=== PATIENT | female | born 1950 | race Caucasian/White ===

== ENCOUNTER 2018-02-18 12:55 | Outpatient (CLI) | payer MEDICARE ==
--- NOTE | 2018-02-18 14:20 | CT ---
CT OF THE CHEST WITHOUT CONTRAST: Date 02/18/18 COMPARISON: CTA of the chest dated 01/09/17. HISTORY: Thoracic aortic aneurysm. TECHNIQUE: Multiple contiguous axial images were obtained in a CT of the chest without contrast. Coronal reforma ts were performed. FINDINGS: There is enlargement of the ascending aorta. This has enlarged compared to the prior exam and now rick sures approximately 4.3 cm in greatest dimension. The aortic root appears normal in caliber, measurin g only 2.7 cm in size. The aneurysm of the aorta involves the ascending aorta without significant enl argement of the descending aorta or the aortic arch. Atherosclerotic calcifications are seen within the aorta. The great vessels are normal in caliber wit hout evidence of aneurysmal dilatation. The heart is normal in size without focal cardiac abnormality . No hilar or mediastinal lymphadenopathy seen. The visualized subdiaphragmatic structures are unremarkable. Degenerative changes are seen in the spi ne. Abdominal wall soft tissues are unremarkable. IMPRESSION: Ascending thoracic aortic aneurysm appears to have slightly enlarged compared to the prior examinatio n. POS: [facility]
== END 2018-02-18 12:56 | disposition home or self-care (01) ==
LOC: CT 12:55
PROVIDERS: ATTEND Thoracic Surgery (Cardiothoracic Vascular Surgery)
DX: I71.2 Thoracic aortic aneurysm, without rupture (principal)
CPT/HCPCS: 71250

== ENCOUNTER 2018-04-08 07:57 | Outpatient (CLI) | payer MEDICARE ==
--- NOTE | 2018-04-08 11:05 | MMO ---
BILATERAL SCREENING MAMMOGRAM: Date: 04/08/18 HISTORY: Screening. COMPARISON: Mammogram dated 07/09/16. TECHNIQUE: Bilateral screening CC and MLO mammograms. This patient's mammogram was interpreted with the assistance of computer-aided detection. FINDINGS: There are scattered fibroglandular densities. Unchanged left-sided breast mass at 3:00 dating back to 2006, likely benign entity. No suspicious mass, architectural distortion, or microcalcifications. IMPRESSION: BIRADS 2: Benign Finding(s) Continued annual mammographic screening is recommended. POS: [facility]
== END 2018-04-08 07:58 | disposition home or self-care (01) ==
LOC: SCSMAMMO 07:57
PROVIDERS: ATTEND Family Medicine
DX: Z12.31 Encounter for screening mammogram for malignant neoplasm of breast (principal)
CPT/HCPCS: 77067

== ENCOUNTER 2018-05-17 09:01 | Outpatient (CLI) | payer MEDICARE | END 2018-05-17 09:02 | disposition home or self-care (01) | LOC: BICMAMMO 09:01 | PROVIDERS: ATTEND Family Medicine | DX: M85.80 Other specified disorders of bone density and structure, unspecified site (principal); M85.89 Other specified disorders of bone density and structure, multiple sites; Z78.0 Asymptomatic menopausal state | CPT/HCPCS: 77080 ==

== ENCOUNTER 2018-09-16 10:25 | Outpatient (CLI) | payer MEDICARE ==
--- NOTE | 2018-09-16 13:17 | CT ---
CT CHEST WITHOUT CONTRAST: Date: 09/16/18 HISTORY: Thoracic aortic aneurysm without rupture. COMPARISON: 02/18/18. FINDINGS: Ectasia of the ascending thoracic aorta is again seen with stable AP dimension of 4.3 cm. The descend ing thoracic aorta measures 2.5 cm. No pleural or pericardial effusions are seen. No pneumothoraces, lobar consolidation, pulmonary nodul es, or lung masses are identified. Degenerative changes are present in the spine. IMPRESSION: Stable ectasia of the ascending thoracic aorta. POS: [facility]
== END 2018-09-16 10:26 | disposition home or self-care (01) ==
LOC: SCSCT 10:25
PROVIDERS: ATTEND Thoracic Surgery (Cardiothoracic Vascular Surgery)
DX: I71.2 Thoracic aortic aneurysm, without rupture (principal); I77.810 Thoracic aortic ectasia
CPT/HCPCS: 71250

== ENCOUNTER 2019-03-22 08:18 | Outpatient (CLI) | payer MEDICARE ==
[2019-03-22] MEDS ORDERED: ISOVUE-370 76%-LOCM 1 ML ONE (08:35)
--- NOTE | 2019-03-22 09:43 | CT ---
EXAM: CT Chest W Con PROVIDED CLINICAL HISTORY: Thoracic aortic aneurysm without rupture COMPARISON: Noncontrast CT thorax 09/16/2018 and CTA thorax on 01/09/2017 FINDINGS: Again noted is ectasia of the ascending thoracic aorta which measures approximately 4.3 cm AP x 4 cm transverse, and measurements are unchanged when compared to prior studies in 2018. Greatest measurement on study in 2017 was 4.1 cm. There is no evidence of an aortic dissection. Vascular calci fications and atherosclerotic plaque is seen throughout the thoracic aorta as well as involving the visualized proximal abdominal aorta. There is at least mild narrowing involving the origin of the lef t subclavian artery. There is a normal arrangement of the great vessels at the aortic arch. The heart is mildly enlarged. There is no evidence of lymphadenopathy. Minimal atelectasis is present in the dependent portion right mid lung zone. A 4 mm slightly irregular pulmonary nodule is seen in the lateral aspect of the right upper lobe (ever ge 39, series 3). A few tiny sub-3 mm pulmonary nodules are seen in the anterior aspect of the right upper lobe similar to prior study. There is a stable slightly irregular nodular density in the anterior aspect left upper lobe (image 36, series 3) which is stable compared to studies from 2017 and 2018 and could potentially represent an area of mild scarring. An approximately 4 mm noncalcified pulmonary nodule is seen in the left upper lobe (image 41, series 3). This is not well appreciated on prior exams. A 4 mm noncalcified pulmonary nodule is seen in the superior segment of the right low er lobe (image 45, series 3). No pleural effusions. Visualized upper abdomen demonstrates a normal CT appearance. Few diverticula are seen in the proxima l descending colon. IMPRESSION: 1. Stable ectasia of the ascending thoracic aorta when compared to studies in 2018; although, the rick surement is slightly greater when compared to a study in 2017 as described above. 2. Scattered nodular densities within the lungs bilaterally measuring 4 mm or less. Follow-up CT thor ax in 6 months is recommended unless patient has history of neoplastic process. 3. Atherosclerotic plaque in the thoracic aorta. 4. Cardiomegaly.
== END 2019-03-22 08:19 | disposition home or self-care (01) ==
LOC: BICCT 08:18
PROVIDERS: ATTEND Thoracic Surgery (Cardiothoracic Vascular Surgery)
DX: I71.2 Thoracic aortic aneurysm, without rupture (principal); I70.0 Atherosclerosis of aorta; I51.7 Cardiomegaly; J98.4 Other disorders of lung
CPT/HCPCS: 71260; 82565; Q9966

== ENCOUNTER 2019-09-22 08:42 | Outpatient (CLI) | payer MEDICARE ==
--- NOTE | 2019-09-22 11:25 | CT ---
CT chest 09/22/2019 COMPARISON: 03/22/2019 HISTORY: Reevaluate thoracic aortic aneurysm. TECHNIQUE: Axial CT imaging at 5 mm intervals through the chest with IV contrast. Coronal and sagitta l reformatted imaging obtained. FINDINGS: The liver, gallbladder, and spleen appear grossly unremarkable. The pancreas and adrenal glands are stable. There is a small adrenal nodule on the right, difficult t o characterize given its small size of approximately 7 mm, similar when compared to the prior examination. The visualized portions of the abdominal aorta demonstrates severe multifocal calcified and noncalcif ied eccentric plaque. There is mild narrowing at the origin of celiac axis. There is a probable nonflow limiting small dissection of the infrarenal abdominal aorta on axial imag e [id number]. The abdominal aorta is not fully imaged on this examination. There is a mild/moderate degree of narrowing of the abdominal aorta just below the axial level the renal arteries on the basis of atherosclerotic plaque. There is ectasia of the ascending aorta which measures approximately 4.2 x 4.1 cm, stable when compar ed to the 03/22/2019 examination. There is atherosclerotic calcification involving the aortic arch as well as the origin of the left common carotid artery and left subclavian artery. There is no pneumothorax noted. There is a new noncalcified 4 mm nodule in the superior aspect of the left upper lobe on image 8. Sta ble tiny left upper lobe nodule on image 21 measuring 5 mm. New left upper lobe pulmonary nodule on axial image 23 measures 4 mm. There is a new small left lower lobe pulmonary nodule on image 43 measuring approximately 4 mm. There are 2-3 tiny new pulmonary nodules in the superior lateral aspect of the right upper lobe measu ring up to 2-3 mm, best seen on image #12. Scattered additional stable subcentimeter pulmonary nodules noted inferiorly within the anterior aspect of the right upper lobe. Stable 4 mm nodule in ri ght lower lobe on axial image 23. Osseous structures demonstrate no acute findings. IMPRESSION: 1. Stable ectasia of the ascending aorta measuring up to 4.2 cm. 2. Prominent atherosclerotic disease of the abdominal aorta, incompletely imaged. Probable nonflow li miting focal dissection of the infrarenal abdominal aorta as detailed above. 3. Multiple pulmonary nodules as detailed above. Recommend follow-up CT examination of the chest in 6 months. CODE T
== END 2019-09-22 08:43 | disposition home or self-care (01) ==
LOC: SCSCT 08:42
PROVIDERS: ATTEND Thoracic Surgery (Cardiothoracic Vascular Surgery)
DX: I71.2 Thoracic aortic aneurysm, without rupture (principal); R91.8 Other nonspecific abnormal finding of lung field; I70.0 Atherosclerosis of aorta; I77.810 Thoracic aortic ectasia
CPT/HCPCS: 71260; 82565

== ENCOUNTER 2020-04-12 08:19 | Outpatient (CLI) | payer MEDICARE ==
--- NOTE | 2020-04-12 11:29 | CT ---
CT CHEST WITH IV CONTRAST: Date: 04/12/2020 HISTORY: Thoracic aortic aneurysm. COMPARISON: 09/22/2019, 03/22/2019, and 09/16/2018. FINDINGS: The ascending thoracic aorta measures 4.2 cm in AP dimension and is stable. The thoracic aortic lumen is well opacified without aneurysm or dissection. Vascular calcifications are present. No pleural or pericardial effusions are seen. A few scattered tiny lung nodules measuring up to 4.0 mm are stable. No pneumothoraces or focal areas of consolidation are seen. Non flow-limiting plaque in the abdomina l aorta is again seen. There are degenerative changes in the spine. Upper abdominal tomograms demonstrate fatty infiltration of the liver and a stable 7.0 mm right adrenal nodule. A tiny cyst in the left kidney is again seen. IMPRESSION: 1. Stable ectasia of the ascending thoracic aorta measuring 4.2 cm. 2. Stable exam. POS: [facility]
== END 2020-04-12 08:20 | disposition home or self-care (01) ==
LOC: SCSCT 08:19
PROVIDERS: ATTEND Thoracic Surgery (Cardiothoracic Vascular Surgery)
DX: I71.2 Thoracic aortic aneurysm, without rupture (principal); I77.810 Thoracic aortic ectasia
CPT/HCPCS: 71260; 82565

== ENCOUNTER 2021-02-04 09:38 | Emergency (ER) | payer MEDICARE ==
[2021-02-04 11:03] LABS: #Basophils 0.1 thou/uL (0.0-0.2); #Eosinphils 0.5 thou/uL (0.0-0.7); #Lymphocytes 1.9 thou/uL (1.20-3.40); #Monocytes 0.5 thou/uL (0.11-0.59); #Neutrophils 6.3 thou/uL (1.40-6.50); %Basophils 0.8 % (0.0-1.0); %Lymphocytes 20.3 % (21.0-51.0); %Monocytes 5.5 % (0.0-10.0); %Neutrophils 68.5 % (42.0-75.0); Hemoglobin 14.4 g/dL (12.0-16.0); Mean Corpuscular HGB CONC 33.9 g/dL (32.0-36.0); Mean Corpuscular Hemoglobin 32.1 pg (27.0-31.0); Mean Corpuscular Volume 94.6 fL (78.0-98.0); Mean Platelet Volume 8.8 fL (7.4-10.4); Platelet Count 143 thou/uL (130-400); RBC Distribution Width 12.1 % (11.5-14.5); Red Blood Cell (RBC) Count 4.47 mill/uL (4.20-5.40); White Blood Cell (WBC) Count 9.2 thou/uL (4.8-10.8)
[2021-02-04 11:15] LABS: ALT (SGPT) 25 U/L (8-55); AST (SGOT) 20 U/L (5-34); Albumin 4.2 g/dL (3.4-4.8); Alkaline Phosphatase 85 U/L (40-110); Anion Gap 15 mmol/L (10-20); BUN (Urea Nitrogen) 18 mg/dL (9.8-20.1); Bilirubin, Total 0.7 mg/dL (0.2-1.2); CK (CPK) 67 U/L (29-168); Calc. Creatinine Clearance 0 mL/min (70-130); Calcium 9.5 mg/dL (7.8-10.44); Carbon Dioxide 24 mmol/L (23-31); Chloride 106 mmol/L (98-107); Globulin 2.7 g/dL (2.4-3.5); Glucose 130 mg/dL (83-110); Potassium 4.1 mmol/L (3.5-5.1); Protein, Total 6.9 g/dL (5.8-8.1); Sodium 141 mmol/L (136-145)
== END 2021-02-04 12:39 | disposition home or self-care (01) ==
LOC: ERS 09:38
DX: R55 Syncope and collapse (principal)
CPT/HCPCS: 36415; 71045; 80053; 82550; 83605; 85025; 93005

== ENCOUNTER 2021-04-18 11:05 | Outpatient (CLI) | payer MEDICARE | END 2021-04-18 11:06 | disposition home or self-care (01) | LOC: CT 11:05 | PROVIDERS: ATTEND Thoracic Surgery (Cardiothoracic Vascular Surgery) | DX: I71.2 Thoracic aortic aneurysm, without rupture (principal); K76.0 Fatty (change of) liver, not elsewhere classified | CPT/HCPCS: 71260; 82565 ==

== ENCOUNTER 2021-06-21 13:27 | Outpatient (CLI) | payer MEDICARE ==
[2021-06-21 14:32] LABS: Hemoglobin 14.1 g/dL (12.0-15.5); Mean Corpuscular HGB CONC 32.6 g/dL (32.0-36.0); Mean Corpuscular Hemoglobin 30.3 pg (27.0-33.0); Mean Corpuscular Volume 92.9 fl (81.6-98.3); Mean Platelet Volume 11.4 fl (7.4-10.4); Platelet Count 154 10x3/uL (150-450); RBC Distribution Width 12.7 % (11.5-14.5); Red Blood Cell (RBC) Count 4.66 10x6/uL (3.90-5.03); White Blood Cell (WBC) Count 7.8 10x3/uL (3.5-10.5)
[2021-06-21 15:05] LABS: Anion Gap 15 mmol/L (10-20); BUN (Urea Nitrogen) 15 mg/dL (9.8-20.1); Calc. Creatinine Clearance 0 mL/min (70-130); Calcium 10.3 mg/dL (7.8-10.44); Carbon Dioxide 30 mmol/L (23-31); Chloride 107 mmol/L (98-107); Glucose 161 mg/dL (83-110); Potassium 3.9 mmol/L (3.5-5.1); Sodium 148 mmol/L (136-145)
[2021-06-22 16:41] LABS: SARS-CoV-2 PCR by NAA Not Detected (NotDetected)
== END 2021-06-21 13:28 | disposition home or self-care (01) ==
LOC: LABBT 13:27
PROVIDERS: ATTEND Specialist
DX: Z01.812 Encounter for preprocedural laboratory examination (principal); Z20.822 Contact with and (suspected) exposure to COVID-19
CPT/HCPCS: 80048; 85027; U0003; U0005

== ENCOUNTER 2022-12-02 00:14 | Inpatient (IN) | payer MEDICARE ==
[2022-12-02 02:14] VITALS: BMI 27.6
[2022-12-02] MEDS ORDERED: Dextrose 5% in Water 1,000 ML IV PRN (02:50)
[2022-12-02] MEDS ORDERED: Dextrose 50% Abboject 50 ML SYRINGE SLOW IVP PRN (02:50)
[2022-12-02] MEDS ORDERED: HumaLOG 300 UNITS/3 ML VIAL SC PRN ×2 (02:50)
[2022-12-02] MEDS ORDERED: Acetaminophen 325 MG TAB PO PRN (02:50)
[2022-12-02] MEDS ORDERED: Ondansetron ODT 4 MG TAB PO PRN (02:50)
[2022-12-02] MEDS ORDERED: Ondansetron PF 4 MG/2 ML Vial IVP PRN (02:50)
[2022-12-02] MEDS ORDERED: Sodium Chloride 0.9% 1,000 ML IV SCH (03:00)
[2022-12-02] MEDS ORDERED: clonazePAM 0.5 MG TAB PO PRN (03:22)
[2022-12-02] MEDS ORDERED: Betamethasone Val 0.1% Lotion 60 ML BOT TOP PRN (03:34)
[2022-12-02 08:32] LABS: #Basophils 0.1 thou/uL (0.0-0.2); #Eosinphils 0.2 thou/uL (0.0-0.7); #Lymphocytes 1.9 thou/uL (1.20-3.40); #Monocytes 0.5 thou/uL (0.11-0.59); #Neutrophils 2.8 thou/uL (1.40-6.50); %Basophils 1.1 % (0.0-1.0); %Eosinophils 4.5 % (0.0-10.0); %Monocytes 9.3 % (0.0-10.0); Hemoglobin 12.4 g/dL (12.0-16.0); Mean Corpuscular HGB CONC 33.6 g/dL (32.0-36.0); Mean Corpuscular Hemoglobin 30.9 pg (27.0-31.0); Mean Corpuscular Volume 91.9 fl (78.0-98.0); Mean Platelet Volume 8.6 fL (7.4-10.4); Platelet Count 104 10x3/uL (130-400); RBC Distribution Width 11.8 % (11.5-14.5); White Blood Cell (WBC) Count 5.5 10x3/uL (4.8-10.8)
[2022-12-02 08:48] LABS: Anion Gap 13 mmol/L (10-20); BUN (Urea Nitrogen) 17 mg/dL (9.8-20.1); Calc. Creatinine Clearance 73 mL/min (70-130); Calcium 8.9 mg/dL (7.8-10.44); Carbon Dioxide 27 mmol/L (23-31); Chloride 105 mmol/L (98-107); Estimated GFR 72; Glucose 138 mg/dL (83-110); Potassium 3.3 mmol/L (3.5-5.1); Sodium 142 mmol/L (136-145)
[2022-12-02] MEDS ORDERED: VITAMIN K2 100 MCG PO SCH (09:00)
[2022-12-02] MEDS ORDERED: Aspirin 81 mg Enteric Coated Tablet PO SCH (09:00)
[2022-12-02] MEDS: Pregabalin 50 MG CAP PO SCH ×3 (10:02→20:37)
[2022-12-02] MEDS: Furosemide 20 MG TAB PO SCH (10:03)
[2022-12-02] MEDS: Timolol 0.5% Ophth Soln 5 ml Bottle EA EYE SCH ×2 (11:08→20:44)
[2022-12-02] MEDS: Multivit, Therapeutic 1 TAB PO SCH (11:08)
[2022-12-02] MEDS: Zinc Sulfate 220 MG CAP PO SCH (11:09)
[2022-12-02] MEDS ORDERED: HYDROcodone/Acetaminophen 10/325 mg Tablet PO PRN (11:39)
[2022-12-02] MEDS ORDERED: Potassium Chloride 20 MEQ TAB PO SCH (17:00)
[2022-12-02] MEDS ORDERED: Milk Of Magnesia 30 ML UDCUP PO PRN (17:49)
[2022-12-02] MEDS: HYDROcodone/Acetaminophen 10/325 mg Tablet PO SCH (20:36)
[2022-12-02] MEDS: Losartan 25 MG TAB PO SCH (20:38)
[2022-12-02] MEDS: Senokot S 8.6-50 MG TAB PO SCH (20:38)
[2022-12-02] MEDS ORDERED: Atorvastatin Calcium 40 MG TAB PO SCH (21:00)
[2022-12-02] MEDS ORDERED: Latanoprost 0.005% Ophth Soln 2.5 ml Bottle EA EYE SCH (21:00)
[2022-12-03] MEDS ORDERED: HYDROcodone/Acetaminophen 10/325 mg Tablet PO PRN (03:00)
[2022-12-03 04:18] LABS: #Basophils 0.1 thou/uL (0.0-0.2); #Eosinphils 0.3 thou/uL (0.0-0.7); #Lymphocytes 2.2 thou/uL (1.20-3.40); #Monocytes 0.5 thou/uL (0.11-0.59); #Neutrophils 2.2 thou/uL (1.40-6.50); %Basophils 1.1 % (0.0-1.0); %Eosinophils 5.3 % (0.0-10.0); %Lymphocytes 41.6 % (21.0-51.0); %Monocytes 10.2 % (0.0-10.0); %Neutrophils 41.8 % (42.0-75.0); Hemoglobin 12.4 g/dL (12.0-16.0); Mean Corpuscular HGB CONC 34.9 g/dL (32.0-36.0); Mean Corpuscular Hemoglobin 31.8 pg (27.0-31.0); Mean Corpuscular Volume 91.2 fl (78.0-98.0); Mean Platelet Volume 9.4 fL (7.4-10.4); Platelet Count 107 10x3/uL (130-400); RBC Distribution Width 11.7 % (11.5-14.5); Red Blood Cell (RBC) Count 3.89 mill/uL (4.20-5.40); White Blood Cell (WBC) Count 5.3 10x3/uL (4.8-10.8)
[2022-12-03 04:28] LABS: Anion Gap 13 mmol/L (10-20); BUN (Urea Nitrogen) 15 mg/dL (9.8-20.1); Calc. Creatinine Clearance 82 mL/min (70-130); Calcium 8.9 mg/dL (7.8-10.44); Carbon Dioxide 25 mmol/L (23-31); Chloride 107 mmol/L (98-107); Estimated GFR 82; Glucose 121 mg/dL (83-110); Potassium 3.9 mmol/L (3.5-5.1); Sodium 141 mmol/L (136-145)
[2022-12-03] MEDS ORDERED: Calcium Carbonate 600 MG + Vit D TAB PO SCH (09:00)
[2022-12-03] MEDS ORDERED: Saccharomyces boulardii 250 MG CAP PO SCH (09:00)
[2022-12-03] MEDS ORDERED: Clopidogrel Bisulfate 75 MG TAB PO SCH (09:00)
[2022-12-03] MEDS ORDERED: Aspirin 81 mg Enteric Coated Tablet PO SCH (09:00)
[2022-12-03] MEDS ORDERED: Ascorbic Acid 500 mg Chewable Tablet PO SCH (09:00)
[2022-12-03] MEDS: Senokot S 8.6-50 MG TAB PO SCH (09:03)
[2022-12-03] MEDS: Zinc Sulfate 220 MG CAP PO SCH (09:03)
[2022-12-03] MEDS: Multivit, Therapeutic 1 TAB PO SCH (09:03)
[2022-12-03] MEDS: Furosemide 20 MG TAB PO SCH (09:04)
[2022-12-03] MEDS: Pregabalin 50 MG CAP PO SCH ×2 (09:04→15:29)
[2022-12-03] MEDS: Losartan 25 MG TAB PO SCH (09:05)
[2022-12-03] MEDS: HYDROcodone/Acetaminophen 10/325 mg Tablet PO SCH ×2 (09:05→13:10)
[2022-12-03] MEDS: Timolol 0.5% Ophth Soln 5 ml Bottle EA EYE SCH (09:05)
[2022-12-03 12:10] VITALS: BP 173/73
[2022-12-03 14:11] VITALS: TEMP 97.6
[2022-12-05] MEDS ORDERED: FLU VACC QS2022-23(65YR UP)/PF 240 MCG/0.7 ML SYRINGE IM ONE (09:00)
== END 2022-12-03 16:55 | disposition home or self-care (01) | DRG 68 ==
LOC: IMCU/EMU 00:14
PROVIDERS: ADMIT Family Medicine; ATTEND Family Medicine
DX: I65.22 Occlusion and stenosis of left carotid artery (principal); Z66 Do not resuscitate; I65.03 Occlusion and stenosis of bilateral vertebral arteries; I65.8 Occlusion and stenosis of other precerebral arteries; R42 Dizziness and giddiness; E78.5 Hyperlipidemia, unspecified; E11.51 Type 2 diabetes mellitus with diabetic peripheral angiopathy without gangrene; G47.33 Obstructive sleep apnea (adult) (pediatric); G89.29 Other chronic pain; M54.9 Dorsalgia, unspecified; I50.9 Heart failure, unspecified; E78.2 Mixed hyperlipidemia; I11.0 Hypertensive heart disease with heart failure; Z88.1 Allergy status to other antibiotic agents; Z88.8 Allergy status to other drugs, medicaments and biological substances; Z79.899 Other long term (current) drug therapy; Z86.73 Personal history of transient ischemic attack (TIA), and cerebral infarction without residual deficits; Z79.82 Long term (current) use of aspirin; Z98.890 Other specified postprocedural states; Z90.710 Acquired absence of both cervix and uterus; Z96.82 Presence of neurostimulator; Z87.891 Personal history of nicotine dependence; Z95.0 Presence of cardiac pacemaker
CPT/HCPCS: 0042T; 36415; 36416; 70450; 70551; 71045; 80048; 80053; 80061; 81001; 82043; 82306; 83036; 84439; 84443; 84484; 85025; 85610; 85730; 93005; 93306; J1650; J7050; Q9967

== ENCOUNTER 2022-12-23 07:26 | Outpatient (CLI) | payer MEDICARE | END 2022-12-23 07:27 | disposition home or self-care (01) | LOC: MRI 07:26 | PROVIDERS: ATTEND Neurological Surgery | DX: M51.26 Other intervertebral disc displacement, lumbar region (principal); M50.222 Other cervical disc displacement at C5-C6 level; M51.24 Other intervertebral disc displacement, thoracic region; K60.2 Anal fissure, unspecified; M51.27 Other intervertebral disc displacement, lumbosacral region; M25.78 Osteophyte, vertebrae; M51.37 Other intervertebral disc degeneration, lumbosacral region; M48.07 Spinal stenosis, lumbosacral region; M47.816 Spondylosis without myelopathy or radiculopathy, lumbar region | CPT/HCPCS: 72146; 72148 ==

== ENCOUNTER 2023-02-11 10:32 | Outpatient (CLI) | payer MEDICARE | END 2023-02-11 10:33 | disposition home or self-care (01) | LOC: TBSIIMAG 10:32 | PROVIDERS: ATTEND Neurological Surgery | DX: M54.16 Radiculopathy, lumbar region (principal); Z98.890 Other specified postprocedural states | CPT/HCPCS: 72100 ==

== ENCOUNTER 2023-05-11 12:19 | Outpatient (CLI) | payer MEDICARE | END 2023-05-11 12:20 | disposition home or self-care (01) | LOC: RAD 12:19 | PROVIDERS: ATTEND Internal Medicine Critical Care Medicine | DX: R06.00 Dyspnea, unspecified (principal) | CPT/HCPCS: 71046 ==

== ENCOUNTER 2023-05-25 17:30 | Outpatient (CLI) | payer MEDICARE | END 2023-05-25 17:31 | disposition home or self-care (01) | LOC: SLEEPLAB 17:30 | PROVIDERS: ATTEND Internal Medicine Critical Care Medicine | DX: G47.33 Obstructive sleep apnea (adult) (pediatric) (principal); E11.9 Type 2 diabetes mellitus without complications; G45.9 Transient cerebral ischemic attack, unspecified; I10 Essential (primary) hypertension; E78.00 Pure hypercholesterolemia, unspecified; I71.40 Abdominal aortic aneurysm, without rupture, unspecified; M85.80 Other specified disorders of bone density and structure, unspecified site; H40.9 Unspecified glaucoma | CPT/HCPCS: 95800 ==

== ENCOUNTER 2024-01-12 10:29 | Day surgery (SDC) | payer MEDICARE ==
[2024-01-11 11:41] VITALS: BMI 27.3
[2024-01-12] MEDS ORDERED: PHENYLephrine 2.5% Ophth Soln 15 ml Bottle ONE (12:03)
[2024-01-12] MEDS ORDERED: Tropicamide 1% 15 ML BOTTLE OP SCH (12:15)
== END 2024-01-12 13:17 | disposition home or self-care (01) ==
LOC: SDC 10:29
PROVIDERS: ATTEND Ophthalmology
PROC: 085K3ZZ Destruction of Left Lens, Percutaneous Approach (ICD-10-PCS; principal; 2024-01-12)
PROC: 085J3ZZ Destruction of Right Lens, Percutaneous Approach (ICD-10-PCS; 2024-01-12)
PROC: B246ZZZ Ultrasonography of Right and Left Heart (ICD-10-PCS; 2024-01-12)
DX: H26.493 Other secondary cataract, bilateral (principal); I10 Essential (primary) hypertension; G47.33 Obstructive sleep apnea (adult) (pediatric); E11.9 Type 2 diabetes mellitus without complications; I87.2 Venous insufficiency (chronic) (peripheral); I73.9 Peripheral vascular disease, unspecified; I71.20 Thoracic aortic aneurysm, without rupture, unspecified; Z88.1 Allergy status to other antibiotic agents; Z88.8 Allergy status to other drugs, medicaments and biological substances; Z88.6 Allergy status to analgesic agent; Z79.899 Other long term (current) drug therapy; Z98.51 Tubal ligation status; Z98.890 Other specified postprocedural states; Z90.710 Acquired absence of both cervix and uterus; Z98.49 Cataract extraction status, unspecified eye
CPT/HCPCS: 66821; Z7902; Z7982

== ENCOUNTER 2025-06-13 20:36 | Inpatient (IN) | payer MEDICARE ==
[2025-06-13 22:04] LABS: #Basophils 0.06 10x3/uL (0.0-0.2); #Eosinophils 0.19 10x3/uL (0.0-0.7); #Monocytes 0.58 10x3/uL (0.11-0.59); #Neutrophils 3.42 10x3/uL (1.40-6.50); %Basophils 1.0 % (0.0-1.0); %Eosinophils 3.3 % (0.0-10.0); %Lymphocytes 26.4 % (21.0-51.0); %Monocytes 10.0 % (0.0-10.0); %Neutrophils 59.0 % (42.0-75.0); Hematocrit 37.3 % (36.0-47.0); Hemoglobin 12.2 g/dL (12.0-16.0); Mean Corpuscular Hemoglobin 30.6 pg (27.0-31.0); Mean Corpuscular Volume 93.5 fL (78.0-98.0); Platelet Count 123 10x3/uL (130-400); Red Blood Cell (RBC) Count 3.99 mill/uL (4.20-5.40); White Blood Cell (WBC) Count 5.80 10x3/uL (4.8-10.8)
[2025-06-13 22:18] LABS: Platelet Adequacy Comment Platelets Decreased; RBC Morphology Within Normal Limits; Smudge Cells 15.0 %
[2025-06-13 22:24] LABS: ALT (SGPT) 33 U/L (Less than 34); AST (SGOT) 36 U/L (11-34); Albumin 3.8 g/dL (3.1-4.5); Alkaline Phosphatase 107 U/L (40-110); Anion Gap 15 mmol/L (10-20); BUN (Urea Nitrogen) 32 mg/dL (9.8-20.1); Bilirubin, Total 0.4 mg/dL (0.3-1.2); Calc. Creatinine Clearance 0 mL/min (70-130); Calcium 13.4 mg/dL (7.8-10.44); Carbon Dioxide 33 mmol/L (23-31); Chloride 102 mmol/L (98-107); Globulin 3.0 g/dL (2.4-3.5); Glucose 158 mg/dL (83-110); Potassium 4.0 mmol/L (3.5-5.1); Sodium 146 mmol/L (136-145)
[2025-06-14 00:33] LABS: Troponin I Less than 0.010 ng/mL (< 0.028)
[2025-06-14] MEDS ORDERED: Ondansetron PF 4 MG/2 ML Vial IVP PRN (01:11)
[2025-06-14] MEDS ORDERED: Calcium Carbonate 500 MG ChewTAB PO PRN (01:11)
[2025-06-14] MEDS ORDERED: Albuterol 200 PUFF (6.7GM INHALER) INH PRN (01:15)
[2025-06-14 04:40] VITALS: BMI 29.0
[2025-06-14 04:44] LABS: #Basophils 0.06 10x3/uL (0.0-0.2); #Eosinophils 0.22 10x3/uL (0.0-0.7); #Monocytes 0.66 10x3/uL (0.11-0.59); #Neutrophils 3.94 10x3/uL (1.40-6.50); %Basophils 0.9 % (0.0-1.0); %Eosinophils 3.4 % (0.0-10.0); %Lymphocytes 23.8 % (21.0-51.0); %Monocytes 10.2 % (0.0-10.0); %Neutrophils 60.9 % (42.0-75.0); Hematocrit 38.1 % (36.0-47.0); Hemoglobin 12.7 g/dL (12.0-16.0); Mean Corpuscular Hemoglobin 30.8 pg (27.0-31.0); Mean Corpuscular Volume 92.3 fL (78.0-98.0); Platelet Count 108 10x3/uL (130-400); Red Blood Cell (RBC) Count 4.13 mill/uL (4.20-5.40); White Blood Cell (WBC) Count 6.47 10x3/uL (4.8-10.8)
[2025-06-14 04:58] LABS: ALT (SGPT) 30 U/L (Less than 34); AST (SGOT) 28 U/L (11-34); Albumin 3.4 g/dL (3.1-4.5); Alkaline Phosphatase 104 U/L (40-110); Anion Gap 11 mmol/L (10-20); BUN (Urea Nitrogen) 30 mg/dL (9.8-20.1); Bilirubin, Total 0.4 mg/dL (0.3-1.2); Calc. Creatinine Clearance 32 mL/min (70-130); Calcium 12.5 mg/dL (7.8-10.44); Carbon Dioxide 31 mmol/L (23-31); Chloride 104 mmol/L (98-107); Globulin 2.9 g/dL (2.4-3.5); Glucose 101 mg/dL (83-110); Potassium 3.4 mmol/L (3.5-5.1); Sodium 143 mmol/L (136-145)
[2025-06-14] MEDS ORDERED: Mometasone 200 MCG/Formoterol 5 MCG 120 PUFF INHALER INH SCH (06:30)
[2025-06-14 06:34] LABS: Osmolality, Urine 343 mOsm/kg (50-1200)
[2025-06-14 06:55] LABS: Bacteria/HPF None Seen HPF (None Seen); Glucose, Urine (Dipstick) Normal (Negative); Leukocyte 500 Leu/uL (Negative); Protein, Urine (Dipstick) Negative (Neg-Trace); RBC/HPF 0-3 HPF (0-3); Specific Gravity, Urine 1.008 (1.002-1.036); WBC/HPF Greater than 50 HPF (0-3)
[2025-06-14] MEDS: Mometasone 200 MCG/Formoterol 5 MCG 120 PUFF INHALER INH SCH (08:16)
[2025-06-14] MEDS: CO Q-10 CAPSULE 100 MG PO SCH (09:11)
[2025-06-14 14:27] LABS: Reference Lab Name LABCORP
[2025-06-14 14:29] LABS: Reference Lab Name LABCORP
[2025-06-14] MEDS ORDERED: Naloxegol 12.5 MG TAB PO PRN (16:17)
[2025-06-14] MEDS ORDERED: Glucagon 1 MG/ML KIT IM PRN (16:37)
[2025-06-14] MEDS ORDERED: Dextrose 50% Abboject 50 ML SYRINGE SLOW IVP PRN (16:37)
[2025-06-14] MEDS: clonazePAM 0.5 MG TAB PO PRN (21:22)
[2025-06-14] MEDS: Acetaminophen 325 MG TAB PO PRN (21:23)
[2025-06-15 04:46] LABS: #Basophils 0.06 10x3/uL (0.0-0.2); #Eosinophils 0.17 10x3/uL (0.0-0.7); #Monocytes 0.49 10x3/uL (0.11-0.59); #Neutrophils 2.68 10x3/uL (1.40-6.50); %Basophils 1.3 % (0.0-1.0); %Eosinophils 3.6 % (0.0-10.0); %Lymphocytes 27.5 % (21.0-51.0); %Monocytes 10.4 % (0.0-10.0); %Neutrophils 56.8 % (42.0-75.0); Hematocrit 34.6 % (36.0-47.0); Hemoglobin 11.0 g/dL (12.0-16.0); Mean Corpuscular Hemoglobin 29.7 pg (27.0-31.0); Mean Corpuscular Volume 93.5 fL (78.0-98.0); Platelet Count 100 10x3/uL (130-400); Red Blood Cell (RBC) Count 3.70 mill/uL (4.20-5.40); White Blood Cell (WBC) Count 4.72 10x3/uL (4.8-10.8)
[2025-06-15 04:59] LABS: Anion Gap 13 mmol/L (10-20); BUN (Urea Nitrogen) 24 mg/dL (9.8-20.1); Calc. Creatinine Clearance 40 mL/min (70-130); Calcium 10.1 mg/dL (7.8-10.44); Carbon Dioxide 26 mmol/L (23-31); Chloride 109 mmol/L (98-107); Glucose 96 mg/dL (83-110); Potassium 3.3 mmol/L (3.5-5.1); Sodium 145 mmol/L (136-145)
[2025-06-15 16:17] LABS: Bacteria/HPF 2+ HPF (None Seen); CAUTI Indications for Culture Dysuria,urgency,freq; Glucose, Urine (Dipstick) Normal (Negative); Leukocyte 500 Leu/uL (Negative); Protein, Urine (Dipstick) Negative (Neg-Trace); Specific Gravity, Urine 1.008 (1.002-1.036); WBC/HPF Greater than 50 HPF (0-3)
[2025-06-15 16:18] LABS: Urine Culture Reflex Yes Yes
[2025-06-15] MEDS: hydrALAZINE 20 MG/ML VIAL SLOW IVP PRN (17:04)
[2025-06-16 04:38] LABS: Hematocrit 32.2 % (36.0-47.0); Hemoglobin 10.6 g/dL (12.0-16.0); Mean Corpuscular Hemoglobin 29.9 pg (27.0-31.0); Mean Corpuscular Volume 91.0 fL (78.0-98.0); Platelet Count 103 10x3/uL (130-400); Red Blood Cell (RBC) Count 3.54 mill/uL (4.20-5.40); White Blood Cell (WBC) Count 5.45 10x3/uL (4.8-10.8)
[2025-06-16 05:02] LABS: Anion Gap 10 mmol/L (10-20); BUN (Urea Nitrogen) 21 mg/dL (9.8-20.1); Calc. Creatinine Clearance 50 mL/min (70-130); Calcium 9.4 mg/dL (7.8-10.44); Carbon Dioxide 23 mmol/L (23-31); Chloride 114 mmol/L (98-107); Glucose 104 mg/dL (83-110); Potassium 3.2 mmol/L (3.5-5.1); Sodium 144 mmol/L (136-145)
[2025-06-16] MEDS ORDERED: Non-Formulary Item 1 EACH (Oxycodone Hcl/Acetaminophen [Oxycodone-Acetaminophen 10-325] 1 PO PRN (08:33)
[2025-06-16] MEDS: oxyCODONE/Acetaminophen 5 mg/325 mg Tablet PO PRN (09:27)
[2025-06-16] MEDS: Metoprolol Succinate XL 25 MG ER.TAB PO SCH (09:28)
[2025-06-16] MEDS: Cyclobenzaprine 10 MG TAB PO PRN (11:44)
[2025-06-16] MEDS: diphenhydrAMINE 25 MG CAP PO PRN (12:32)
[2025-06-17 04:21] LABS: #Basophils 0.06 10x3/uL (0.0-0.2); #Eosinophils 0.21 10x3/uL (0.0-0.7); #Monocytes 0.54 10x3/uL (0.11-0.59); #Neutrophils 2.94 10x3/uL (1.40-6.50); %Basophils 1.2 % (0.0-1.0); %Eosinophils 4.1 % (0.0-10.0); %Lymphocytes 26.7 % (21.0-51.0); %Monocytes 10.5 % (0.0-10.0); %Neutrophils 56.9 % (42.0-75.0); Hematocrit 32.1 % (36.0-47.0); Hemoglobin 10.3 g/dL (12.0-16.0); Mean Corpuscular Hemoglobin 30.1 pg (27.0-31.0); Mean Corpuscular Volume 93.9 fL (78.0-98.0); Platelet Count 101 10x3/uL (130-400); Red Blood Cell (RBC) Count 3.42 mill/uL (4.20-5.40); White Blood Cell (WBC) Count 5.16 10x3/uL (4.8-10.8)
[2025-06-17 04:47] LABS: Anion Gap 12 mmol/L (10-20); BUN (Urea Nitrogen) 18 mg/dL (9.8-20.1); Calc. Creatinine Clearance 47 mL/min (70-130); Calcium 9.0 mg/dL (7.8-10.44); Carbon Dioxide 22 mmol/L (23-31); Chloride 115 mmol/L (98-107); Glucose 123 mg/dL (83-110); Potassium 3.5 mmol/L (3.5-5.1); Sodium 145 mmol/L (136-145)
[2025-06-17 16:44] VITALS: BP 151/76; TEMP 98
== END 2025-06-17 17:19 | disposition home health service (06) | DRG 683 ==
LOC: ERS 20:36 → 2NO 06-14 01:38
PROVIDERS: ADMIT Student in an Organized Health Care Education/Training Program; ATTEND Internal Medicine
DX: N17.9 Acute kidney failure, unspecified (principal); N39.0 Urinary tract infection, site not specified; E83.52 Hypercalcemia; H40.9 Unspecified glaucoma; M85.89 Other specified disorders of bone density and structure, multiple sites; J44.9 Chronic obstructive pulmonary disease, unspecified; M54.9 Dorsalgia, unspecified; I25.10 Atherosclerotic heart disease of native coronary artery without angina pectoris; E87.6 Hypokalemia; E86.0 Dehydration; R00.1 Bradycardia, unspecified; I12.9 Hypertensive chronic kidney disease with stage 1 through stage 4 chronic kidney disease, or unspecified chronic kidney disease; G47.33 Obstructive sleep apnea (adult) (pediatric); E11.51 Type 2 diabetes mellitus with diabetic peripheral angiopathy without gangrene; T50.3X5A Adverse effect of electrolytic, caloric and water-balance agents, initial encounter; G89.29 Other chronic pain; E78.00 Pure hypercholesterolemia, unspecified; I71.9 Aortic aneurysm of unspecified site, without rupture; E78.5 Hyperlipidemia, unspecified; M81.0 Age-related osteoporosis without current pathological fracture; F17.210 Nicotine dependence, cigarettes, uncomplicated; N18.30 Chronic kidney disease, stage 3 unspecified; R51.9 Headache, unspecified; D63.1 Anemia in chronic kidney disease; B96.1 Klebsiella pneumoniae [K. pneumoniae] as the cause of diseases classified elsewhere; E11.40 Type 2 diabetes mellitus with diabetic neuropathy, unspecified; E11.39 Type 2 diabetes mellitus with other diabetic ophthalmic complication; I44.0 Atrioventricular block, first degree; Z98.890 Other specified postprocedural states; Z90.710 Acquired absence of both cervix and uterus; Z88.8 Allergy status to other drugs, medicaments and biological substances; Z79.899 Other long term (current) drug therapy; Z79.02 Long term (current) use of antithrombotics/antiplatelets; Z79.82 Long term (current) use of aspirin; Z79.51 Long term (current) use of inhaled steroids; Z96.82 Presence of neurostimulator; Z91.018 Allergy to other foods; Z88.1 Allergy status to other antibiotic agents
CPT/HCPCS: 36415; 36416; 70450; 71045; 76770; 80048; 80053; 80061; 81001; 82043; 82306; 82330; 83036; 83935; 83970; 84156; 84300; 84439; 84443; 84481; 84484; 85025; 85027; 87077; 87086; 87186; 93005; J0360; J0690; J7030; J7120